=== PATIENT | male | born 1950 | race Caucasian/White ===

== ENCOUNTER 2018-08-08 03:23 | Emergency (ER) | payer MEDICARE ==
[~2018-08-08] VITALS: Ht 180.3 cm; Wt 104.5 kg
[2018-08-08] MEDS ORDERED: FENT-76 TD (03:44)
[2018-08-08] MEDS ORDERED: OXYC10 PO (03:44)
[2018-08-08] MEDS ORDERED: GABA-531 PO (03:44)
[2018-08-08] MEDS ORDERED: KETOROLAC TROMETHAMINE 60 MG/2 ML VIAL IM ONE (03:45)
[2018-08-08] MEDS ORDERED: MethylPREDNISolone SOD SUCC 125 MG/2 ML VIAL IM ONE (03:45)
[2018-08-08] MEDS ORDERED: HYDROmorphone 2 MG/ML SYRINGE IM ONE (03:45)
[2018-08-08 04:50] VITALS: BP 165/72
== END 2018-08-08 05:01 | disposition home or self-care (01) ==
LOC: EMS 03:24
DX: G89.29 Other chronic pain (principal); M54.42 Lumbago with sciatica, left side; I10 Essential (primary) hypertension; E78.00 Pure hypercholesterolemia, unspecified; Z96.651 Presence of right artificial knee joint; Z88.8 Allergy status to other drugs, medicaments and biological substances
CPT/HCPCS: 96372; 99285; J1170; J1885; J2930

== ENCOUNTER 2018-08-19 13:00 | Emergency (ER) | payer MEDICARE ==
[~2018-08-19] VITALS: Ht 177.8 cm; Wt 104.5 kg
[~2018-08-19 13:00] MED LIST: FENT-76 TD; GABA-531 PO; OXYC10 PO
[2018-08-19] MEDS ORDERED: LISI-662 PO (13:26)
[2018-08-19] MEDS ORDERED: ALPR0.5T8 PO (13:26)
[2018-08-19] MEDS ORDERED: FENT1PAT25 TD (15:05)
[2018-08-19] MEDS ORDERED: OXYC10IR PO (15:07)
[2018-08-19] MEDS ORDERED: KETOROLAC TROMETHAMINE 60 MG/2 ML VIAL IM ONE (15:15)
[2018-08-19 16:25] VITALS: BP 154/89
== END 2018-08-19 16:46 | disposition home or self-care (01) ==
LOC: EMS 13:00
DX: S46.001A Unspecified injury of muscle(s) and tendon(s) of the rotator cuff of right shoulder, initial encounter (principal); E78.00 Pure hypercholesterolemia, unspecified; I10 Essential (primary) hypertension; G56.00 Carpal tunnel syndrome, unspecified upper limb; M19.90 Unspecified osteoarthritis, unspecified site; Z79.899 Other long term (current) drug therapy; Z96.651 Presence of right artificial knee joint; X50.9XXA Other and unspecified overexertion or strenuous movements or postures, initial encounter; Y93.89 Activity, other specified; Y92.89 Other specified places as the place of occurrence of the external cause; Y99.8 Other external cause status
CPT/HCPCS: 96372; 99283; J1885

== ENCOUNTER 2019-10-01 05:36 | Inpatient (IN) | payer MEDICARE ==
[2019-10-01] VITALS (7 sets, daily range): BP systolic 105–238; BP diastolic 57–118
[~2019-10-01] VITALS: Ht 175.3 cm; Wt 96.9 kg
[~2019-10-01 05:36] MED LIST changes: +ALPR0.5T8 PO; -FENT-76 TD; +FENT1PAT25 TD; +LISI-662 PO; -OXYC10 PO; +OXYC10TA92 PO
[2019-10-01] MEDS ORDERED: FURO20 PO (05:59)
[2019-10-01 06:04] LABS: BASOPHILS % (AUTO) 0.6 % (0.0-2.0); EOSINOPHILS % (AUTO) 2.1 % (1.0-6.0); HEMATOCRIT 41.6 % (41-53); LYMPHOCYTES % (AUTO) 19.8 % (22.0-44.0); MEAN CORPUSCULAR HEMOGLOBIN 28.3 pg (26.0-34.0); MEAN CORPUSCULAR HGB CONC 33.7 G/dL (31.0-37.0); MEAN CORPUSCULAR VOLUME 84 fL (80-100); MONOCYTES # (AUTO) 0.9 K/uL (0.1-1.0); MONOCYTES % (AUTO) 8.6 % (2.0-9.0); NEUTROPHILS # (AUTO) 7.1 K/uL (1.8-7.7); NEUTROPHILS % (AUTO) 68.9 % (40.0-70.0); PLATELET COUNT (AUTO) 267 K/uL (150-450); RED BLOOD CELL COUNT(AUTO) 4.95 MIL/uL (4.50-5.90); RED CELL DISTRIBUTION WIDTH 14.8 % (11.5-14.5)
[2019-10-01 06:12] LABS: ANION GAP 7 mmol/L (8-16); CALCIUM, TOTAL 9.6 mg/dL (8.8-10.5); CARBON DIOXIDE 30 mmol/L (22-29); CHLORIDE 102 mmol/L (98-107); GLOMERULAR FILTR. RATE CALC > 60 mL/min (>60); GLUCOSE,RANDOM 124 mg/dL (70-110); POTASSIUM 3.1 mmol/L (3.5-5.1); SODIUM SERUM 139 mmol/L (136-145); UREA NITROGEN, BLOOD 9 mg/dL (7-18)
[2019-10-01 06:17] LABS: AMPHET/METH SCREEN,URINE NEGATIVE (NEGATIVE); BARBITURATE SCREEN, URINE NEGATIVE (NEGATIVE); BENZODIAZEPINES SCREEN,URINE NEGATIVE (NEGATIVE); CANNABINOID SCREEN,URINE NEGATIVE (NEGATIVE); COCAINE SCREEN,URINE NEGATIVE (NEGATIVE); METHADONE SCREEN, URINE NEGATIVE (NEGATIVE); OPIATE SCREEN,URINE NEGATIVE (NEGATIVE)
[2019-10-01 06:27] LABS: ALANINE AMINOTRANSFERASE 35 U/L (12-78); ALBUMIN 4.3 g/dL (3.4-5.0); ALKALINE PHOSPHATASE 94 U/L (46-116); ASPARTATE AMINOTRANSFERASE 29 U/L (15-37); BILIRUBIN,TOTAL 0.8 mg/dL (0.1-1.0); TOTAL PROTEIN, SERUM 7.9 g/dL (6.4-8.2)
[2019-10-01 06:39] LABS: PHENCYCLIDINE SCREEN,URINE NEGATIVE (NEGATIVE)
[2019-10-01] MEDS ORDERED: PERTUSS(ACELL),DIPH,TET VAC/PF 0.5 ML VIAL IM ONE (07:15)
[2019-10-01] MEDS ORDERED: POTASSIUM CHLORIDE 10% 40 MEQ/30 ML LIQUID UDCUP PO ONE (07:15)
[2019-10-01] MEDS ORDERED: BACITRACIN 0.9 GM PACKET OINTMENT TP ONE (07:15)
[2019-10-01] MEDS ORDERED: 0.9% SODIUM CHLORIDE 10 ML SYRINGE IVP PRN (08:45)
[2019-10-01] MEDS ORDERED: ONDANSETRON HCL 4 MG/2 ML VIAL IVP PRN (08:45)
[2019-10-01] MEDS ORDERED: ACETAMINOPHEN 325 MG TABLET PO PRN ×2 (08:45→09:00)
[2019-10-01] MEDS ORDERED: DEXTROSE 5%-0.45% SODIUM CHL 1,000 ML IV ONE (09:00)
[2019-10-01] MEDS ORDERED: POTASSIUM CHL 10 MEQ/WATER 50 ML IV PRN (09:00)
[2019-10-01] MEDS ORDERED: POTASSIUM CHLORIDE 20 MEQ ER TABLET PO PRN (09:00)
[2019-10-01] MEDS: FAMOTIDINE 20 MG TABLET PO SCH (09:15)
[2019-10-01] MEDS: MULTIVITAMINS WITH MINERALS, THERAPEUTIC TABLET PO SCH (09:16)
[2019-10-01] MEDS: DOCUSATE SODIUM 100 MG CAPSULE PO SCH ×2 (09:17→21:43)
[2019-10-01] MEDS: ASPIRIN 81 MG CHEWABLE TABLET PO SCH (09:17)
[2019-10-01] MEDS ORDERED: LISINOPRIL 10 MG TABLET PO STA (10:39)
[2019-10-01] MEDS ORDERED: FUROSEMIDE 40 MG/4 ML VIAL IVP ONE (12:00)
[2019-10-01] MEDS ORDERED: LABETALOL HCL 5 MG/ML 20 ML VIAL IVP ONE (12:00)
[2019-10-01] MEDS ORDERED: LORazepam 2 MG/ML VIAL IVP ONE (12:45)
[2019-10-01] MEDS ORDERED: CloNIDine HCL 0.1 MG TABLET PO PRN (14:00)
[2019-10-01] MEDS: OxyCODONE HCL/ACETAMINOPHEN 5-325 MG TABLET PO PRN ×2 (14:08→18:39)
[2019-10-01] MEDS: HEPARIN SODIUM,PORCINE 5,000 UNITS/ML VIAL SQ SCH (16:00)
[2019-10-01] MEDS: LISINOPRIL 20 MG TABLET PO SCH (16:04)
[2019-10-01] MEDS ORDERED: HydrALAZINE HCL 20 MG/ML VIAL IVP PRN (20:00)
[2019-10-01] MEDS: PREGABALIN 25 MG CAPSULE PO SCH (21:43)
[2019-10-01] MEDS: LORazepam 2 MG/ML VIAL IVP PRN (22:35)
[2019-10-02] MEDS: HEPARIN SODIUM,PORCINE 5,000 UNITS/ML VIAL SQ SCH ×3 (01:05→17:10)
[2019-10-02 05:32] VITALS: BP 141/73
[2019-10-02 08:02] VITALS: BP 145/80
[2019-10-02] MEDS: LISINOPRIL 20 MG TABLET PO SCH (08:20)
[2019-10-02] MEDS: MULTIVITAMINS WITH MINERALS, THERAPEUTIC TABLET PO SCH (08:20)
[2019-10-02] MEDS: DOCUSATE SODIUM 100 MG CAPSULE PO SCH ×2 (08:20→20:22)
[2019-10-02] MEDS: ASPIRIN 81 MG CHEWABLE TABLET PO SCH (08:20)
[2019-10-02] MEDS: DULoxetine HCL 20 MG CAPSULE PO SCH (08:21)
[2019-10-02] MEDS: PREGABALIN 25 MG CAPSULE PO SCH ×2 (08:21→17:10)
[2019-10-02] MEDS: FAMOTIDINE 20 MG TABLET PO SCH (08:21)
[2019-10-02] MEDS: OxyCODONE HCL/ACETAMINOPHEN 5-325 MG TABLET PO PRN ×3 (11:45→20:19)
[2019-10-02 12:49] VITALS: BP 153/62
[2019-10-02] MEDS: AmLODIPine BESYLATE 5 MG TABLET PO SCH (13:03)
[2019-10-02 19:30] VITALS: BP 157/87
[2019-10-02] MEDS: PREGABALIN 50 MG CAPSULE PO SCH (20:19)
[2019-10-02 21:08] VITALS: BP 147/88
[2019-10-02] MEDS: LORazepam 2 MG/ML VIAL IVP PRN (22:17)
[2019-10-03] MEDS: OxyCODONE HCL/ACETAMINOPHEN 5-325 MG TABLET PO PRN ×2 (04:20→08:56)
[2019-10-03 04:32] VITALS: BP 157/78
[2019-10-03] MEDS: DULoxetine HCL 20 MG CAPSULE PO SCH (07:45)
[2019-10-03] MEDS: PREGABALIN 50 MG CAPSULE PO SCH (07:46)
[2019-10-03] MEDS: ASPIRIN 81 MG CHEWABLE TABLET PO SCH (07:46)
[2019-10-03] MEDS: MULTIVITAMINS WITH MINERALS, THERAPEUTIC TABLET PO SCH (07:46)
[2019-10-03] MEDS: DOCUSATE SODIUM 100 MG CAPSULE PO SCH (07:46)
[2019-10-03] MEDS: AmLODIPine BESYLATE 5 MG TABLET PO SCH (07:46)
[2019-10-03] MEDS: LISINOPRIL 20 MG TABLET PO SCH (07:46)
[2019-10-03] MEDS: FAMOTIDINE 20 MG TABLET PO SCH (07:46)
[2019-10-03] MEDS: HEPARIN SODIUM,PORCINE 5,000 UNITS/ML VIAL SQ SCH ×2 (07:46)
[2019-10-03 08:00] VITALS: BP 159/85
[2019-10-03 11:14] VITALS: BP 127/81
[2019-10-03] MEDS ORDERED: PREG50 PO (14:17)
[2019-10-03] MEDS ORDERED: DULO20CA30 PO (14:21)
== END 2019-10-03 14:45 | disposition home or self-care (01) | DRG 880 ==
LOC: EMS 05:36 → 4E 11:46 → 5S 13:31
PROVIDERS: ADMIT Internal Medicine; ATTEND Internal Medicine
PROC: 2W3BX1Z Immobilization of Left Upper Arm using Splint (ICD-10-PCS; principal; 2019-10-01)
DX: F05 Delirium due to known physiological condition (principal); E87.6 Hypokalemia; Z96.651 Presence of right artificial knee joint; M19.90 Unspecified osteoarthritis, unspecified site; R73.03 Prediabetes; F29 Unspecified psychosis not due to a substance or known physiological condition; M25.512 Pain in left shoulder; M54.9 Dorsalgia, unspecified; E78.00 Pure hypercholesterolemia, unspecified; G89.29 Other chronic pain; I10 Essential (primary) hypertension; J44.9 Chronic obstructive pulmonary disease, unspecified; S60.812A Abrasion of left wrist, initial encounter; Z87.891 Personal history of nicotine dependence; Z95.5 Presence of coronary angioplasty implant and graft; Z79.899 Other long term (current) drug therapy
CPT/HCPCS: 29240; 70450; 84132; 90715; 93005; 97116; 97162; G0480; J0360; J1644; J1940; J2060; J3490